=== PATIENT | male | born 1985 | race Native Hawaiian/Other Pacific Islander ===

== ENCOUNTER 2020-09-03 00:25 | Emergency (ER) | payer BC ==
[~2020-09-03] VITALS: Ht 180.3 cm; Wt 102.1 kg
[2020-09-03 02:30] VITALS: BP 145/90; TEMP 97.8
== END 2020-09-03 02:30 | disposition home or self-care (01) ==
LOC: ED 00:25
DX: L03.114 Cellulitis of left upper limb (principal)
CPT/HCPCS: 96372; 99283; J1885

== ENCOUNTER 2021-06-09 15:40 | Outpatient (CLI) | payer BC | END 2021-06-09 20:46 | disposition home or self-care (01) | LOC: US 15:40 | PROVIDERS: ATTEND Physician Assistant | DX: R10.31 Right lower quadrant pain (principal) ==